=== PATIENT | female | born 1930 | race Caucasian/White ===

== ENCOUNTER → 2016-08-11 | Outpatient (CLI) | payer OTHER | LOC: CIMAGING 11:00 | DX: N95.0 Postmenopausal bleeding (principal); Z90.721 Acquired absence of ovaries, unilateral | CPT/HCPCS: 76856-PO ==

== ENCOUNTER → 2016-08-31 | Outpatient (CLI) | payer OTHER | LOC: CIMAGING 10:08 | DX: Z12.31 Encounter for screening mammogram for malignant neoplasm of breast (principal); Z85.3 Personal history of malignant neoplasm of breast | CPT/HCPCS: 76856-PO; G0202 ==

== ENCOUNTER → 2017-02-08 | Outpatient (CLI) | payer OTHER | LOC: GIMAGING 10:39 | PROVIDERS: ATTEND Nurse Practitioner | DX: M53.3 Sacrococcygeal disorders, not elsewhere classified (principal) | CPT/HCPCS: 72220-PO ==

== ENCOUNTER 2017-02-27 09:00 | Observation (INO) | payer OTHER ==
--- NOTE | 2017-02-27 09:17 | CPEKG ---
Heart Rate: 77 RR Interval: 779 P-R Interval: 260 QRSD Interval: 84 QT Interval: 388 QTC Interval: 440 P [place]: 55 QRS [place]: 46 T Wave [place]: 37 EKG Severity - ABNORMAL ECG - EKG Impression: SINUS RHYTHM EKG Impression: FIRST DEGREE AV BLOCK EKG Impression: LEFT ATRIAL ABNORMALITY Electronically Signed By: Severiano Pardo 27-Feb-2017 14:50:05
--- NOTE | 2017-02-27 09:17 | CPEKG ---
Heart Rate: 77 RR Interval: 779 P-R Interval: 260 QRSD Interval: 84 QT Interval: 388 QTC Interval: 440 P [place]: 55 QRS [place]: 46 T Wave [place]: 37 EKG Severity - ABNORMAL ECG - EKG Impression: SINUS RHYTHM EKG Impression: FIRST DEGREE AV BLOCK EKG Impression: LEFT ATRIAL ABNORMALITY Electronically Signed By: Severiano Pardo 27-Feb-2017 14:50:05
[2017-02-27 09:20] LABS: PLATELET COUNT 263 10^3/uL (150-400)
--- NOTE | 2017-02-27 09:20 | EDPHY ---
H & P Stated Complaint: left lip numb and arm numb since 5am also had yest am and resolved Time Seen by Provider: 02/27/17 09:04 HPI/ROS: Chief Complaint: Left arm and face numbness HPI: 86-year-old woman with a history of hypertension presenting with left arm and face numbness. Patient states she woke this morning at 5:00 a.m. and noticed that the left side her face or left arm or numb. These have persisted since that time. She also states she woke up yesterday with similar symptoms but they got better over the course of the day. No falls. No headache. No recent illness. No chest pain shortness of breath. No nausea or vomiting. She has been ambulating without difficulty. She does state that she had a little bit of confusion and trouble remembering how to use the microwave yesterday. ROS: 10 point Review of Systems is negative except as noted in the HPI. PMH: Hypertension Social History: No smoking, no alcohol, no recreational drug use Family History: non-contributory Physical Exam: Gen: Awake, Alert, No Distress HEENT: Nose: no rhinorrhea Eyes: PERRLA, EOMI Mouth: Moist mucosa Neck: Supple, no JVD Chest: nontender, lungs clear to auscultation Heart: S1, S2 normal, no murmur Abd: Soft, non-tender, no guarding Back: no CVA tenderness, no midline tenderness Ext: no edema, non-tender Skin: no rash Neuro: See the NIH stroke score - Personal History Current Tetanus/Diphtheria Vaccine: Unsure Current Tetanus Diphtheria and Acellular Pertussis (TDAP): Unsure Tetanus Vaccine Date: 2005 - Medical/Surgical History Hx Asthma: No Hx Chronic Respiratory Disease: No Hx Diabetes: Yes Hx Cardiac Disease: No Hx Renal Disease: No Hx Cirrhosis: No Hx Alcoholism: No Hx HIV/AIDS: No Hx Splenectomy or Spleen Trauma: No Other PMH: Hypothiroidism, HTN, deprossion, anxiety, appendectomy, overian cyst , left ovary removed, hyponatremia diagnosed 3 weeks ago. - Social History Smoking Status: Former smoker Constitutional: Initial Vital Signs Heart Rate 88 02/27/17 09:06 Respiratory Rate 16 02/27/17 09:06 Blood Pressure 229/90 H 02/27/17 09:06 O2 Sat (%) 97 02/27/17 09:06 O2 Delivery Mode Room Air Allergies/Adverse Reactions: No Known Allergies Allergy (Verified 02/27/17 09:10) Home Medications: Medication Instructions Recorded Alprazolam ER 1 mg 12/03/09 Lisinopril 12/03/09 Seroquel 12/03/09 Synthroid 12/03/09 ASPIRIN 03/17/16 Memantine HCl 03/17/16 Metoprolol Tartrate 03/17/16 Amlodipine Besylate 02/27/17 Medical Decision Making - Diagnostics EKG Interpretation: ECG time 9:15 a.m., sinus rhythm with a rate of 77, there is a first-degree AV block. Normal axis, no acute ST or T-wave changes. Impression: First-degree AV block otherwise negative. Imaging Results: Imaging Impressions Head CT 02/27/17 09:12 Impression: 1. Mild atrophy. 2. No acute hemorrhage, hydrocephalus, or mass effect. 3. Cerebrovascular atherosclerosis. 4. No definite acute infarct. 5. Moderate microvascular ischemic gliosis. 6. Consider MRI of the brain without and with contrast enhancement, if there is continued clinical concern. Findings and recommendations discussed with Emergency Department physician, Severiano Pardo M.D. at 0930 hours on February 27, 2017. Final report concurs with initial preliminary interpretation. 09 CT scan of the brain shows no acute bleed per Dr. Lei. Imaging: Discussed imaging studies w/ house calls nurse practitioner Radiologist ED Course/Re-evaluation: 86-year-old woman presenting with mild stroke symptoms. I did not activate a stroke alert at this time for 2 reasons. First she woke at 5:00 a.m. with the symptoms so time of onset is unknown. Second her NIH stroke score is 1 at this time. She has been sent to CT scanning. Patient is noted to be hypertensive at 2:29 a.m. systolic initially. Repeat was 200. Blood pressure will be treated with labetalol. [address] Patel, [facility] Neurology. He agrees that the patient is not a candidate for thrombolytics given the onset of symptoms. He is recommending a CT angiogram at this time. He agrees with plan for transfer to [facility] for further evaluation and care. 1026 CT angiogram shows no acute occlusion per Dr. Lei. Will go ahead in transfer to [facility] for further care. No indication for transfer to [facility] at this time. I discussed with Dr. Patel in my previous conversation that if the CT angiogram was unremarkable he was comfortable not receiving a 2nd call and agreed with transfer for inpatient care at [facility]. - Data Points Laboratory Results: Laboratory Results 02/27/17 09:10 02/27/17 09:10 02/27/17 02/27/17 02/27/17 09:10 09:10 09:10 WBC 5.00 10^3/uL 10^3/uL (3.80-9.50) RBC 4.50 10^6/uL 10^6/uL (4.18-5.33) Hgb 14.5 g/dL g/dL (12.6-16.3) Hct 41.5 % % (38.0-47.0) MCV 92.2 fL fL (81.5-99.8) MCH 32.2 pg pg (27.9-34.1) MCHC 34.9 g/dL g/dL (32.4-36.7) RDW 12.3 % % (11.5-15.2) Plt Count 263 10^3/uL 10^3/uL (150-400) MPV 8.5 fL L fL (8.7-11.7) Neut % (Auto) 53.4 % % (39.3-74.2) Lymph % (Auto) 35.8 % % (15.0-45.0) [place] % (Auto) 8.2 % % (4.5-13.0) Eos % (Auto) 1.4 % % (0.6-7.6) Baso % (Auto) 1.0 % % (0.3-1.7) Nucleat RBC Rel Count 0.0 % % (0.0-0.2) Absolute Neuts (auto) 2.67 10^3/uL 10^3/uL (1.70-6.50) Absolute Lymphs (auto) 1.79 10^3/uL 10^3/uL (1.00-3.00) Absolute Monos (auto) 0.41 10^3/uL 10^3/uL (0.30-0.80) Absolute Eos (auto) 0.07 10^3/uL 10^3/uL (0.03-0.40) Absolute Basos (auto) 0.05 10^3/uL 10^3/uL (0.02-0.10) Absolute Nucleated RBC 0.00 10^3/uL 10^3/uL (0-0.01) Immature Gran % 0.2 % % (0.0-1.1) Immature Gran # 0.01 10^3/uL 10^3/uL (0.00-0.10) APTT 29.1 SEC SEC (23.0-38.0) Sodium 134 mEq/L mEq/L (134-144) Potassium 4.4 mEq/L mEq/L (3.5-5.2) Chloride 96 mEq/L L mEq/L (97-110) Carbon Dioxide 24 mEq/l mEq/l (22-31) Anion Gap 14 mEq/L mEq/L (8-16) BUN 10 mg/dL mg/dL (7-23) Creatinine 0.7 mg/dL mg/dL (0.6-1.0) Estimated GFR > 60 Glucose 91 mg/dL mg/dL (70-100) Calcium 9.6 mg/dL mg/dL (8.5-10.4) Total Bilirubin 0.7 mg/dL mg/dL (0.1-1.4) AST 29 IU/L IU/L (14-46) ALT 35 IU/L IU/L (9-52) Alkaline Phosphatase 61 IU/L IU/L (38-126) Total Protein 7.4 g/dL g/dL (6.3-8.2) Albumin 4.8 g/dL g/dL (3.5-5.0) Medications Given: Discontinued Medications Aspirin (Aspirin) 324 mg PO EDNOW ONE Stop: 02/27/17 09:30 Last Admin: 02/27/17 09:35 Dose: 324 mg Departure - Departure Disposition: [facility] Inpatient Acute Clinical Impression: CVA (cerebral vascular accident) Condition: Fair NIH Stroke Scale Date of Exam: 02/27/17 Time of Exam: 09:10 Level of Consciousness: Alert LOC Questions: Answers Both LOC Commands: Performs Both Correctly Best Gaze: Normal Visual: No Visual Loss Facial Palsy: Minor Paralysis Motor Arm-Left: No Drift Motor Arm-Right: No Drift Motor Leg-Left: No Drift Motor Leg-Right: No Drift Limb Ataxis: Absent Sensory: Normal Best Language: No Aphasia Dysarthria: Normal Extinction and Inattention (Neglect): No Abnormality NIH Scale Score: 1
--- NOTE | 2017-02-27 09:20 | EDPHY ---
H & P Stated Complaint: left lip numb and arm numb since 5am also had yest am and resolved Time Seen by Provider: 02/27/17 09:04 HPI/ROS: Chief Complaint: Left arm and face numbness HPI: 86-year-old woman with a history of hypertension presenting with left arm and face numbness. Patient states she woke this morning at 5:00 a.m. and noticed that the left side her face or left arm or numb. These have persisted since that time. She also states she woke up yesterday with similar symptoms but they got better over the course of the day. No falls. No headache. No recent illness. No chest pain shortness of breath. No nausea or vomiting. She has been ambulating without difficulty. She does state that she had a little bit of confusion and trouble remembering how to use the microwave yesterday. ROS: 10 point Review of Systems is negative except as noted in the HPI. PMH: Hypertension Social History: No smoking, no alcohol, no recreational drug use Family History: non-contributory Physical Exam: Gen: Awake, Alert, No Distress HEENT: Nose: no rhinorrhea Eyes: PERRLA, EOMI Mouth: Moist mucosa Neck: Supple, no JVD Chest: nontender, lungs clear to auscultation Heart: S1, S2 normal, no murmur Abd: Soft, non-tender, no guarding Back: no CVA tenderness, no midline tenderness Ext: no edema, non-tender Skin: no rash Neuro: See the NIH stroke score - Personal History Current Tetanus/Diphtheria Vaccine: Unsure Current Tetanus Diphtheria and Acellular Pertussis (TDAP): Unsure Tetanus Vaccine Date: 2005 - Medical/Surgical History Hx Asthma: No Hx Chronic Respiratory Disease: No Hx Diabetes: Yes Hx Cardiac Disease: No Hx Renal Disease: No Hx Cirrhosis: No Hx Alcoholism: No Hx HIV/AIDS: No Hx Splenectomy or Spleen Trauma: No Other PMH: Hypothiroidism, HTN, deprossion, anxiety, appendectomy, overian cyst , left ovary removed, hyponatremia diagnosed 3 weeks ago. - Social History Smoking Status: Former smoker Constitutional: Initial Vital Signs Heart Rate 88 02/27/17 09:06 Respiratory Rate 16 02/27/17 09:06 Blood Pressure 229/90 H 02/27/17 09:06 O2 Sat (%) 97 02/27/17 09:06 O2 Delivery Mode Room Air Allergies/Adverse Reactions: No Known Allergies Allergy (Verified 02/27/17 09:10) Home Medications: Medication Instructions Recorded Alprazolam ER 1 mg 12/03/09 Lisinopril 12/03/09 Seroquel 12/03/09 Synthroid 12/03/09 ASPIRIN 03/17/16 Memantine HCl 03/17/16 Metoprolol Tartrate 03/17/16 Amlodipine Besylate 02/27/17 Medical Decision Making - Diagnostics EKG Interpretation: ECG time 9:15 a.m., sinus rhythm with a rate of 77, there is a first-degree AV block. Normal axis, no acute ST or T-wave changes. Impression: First-degree AV block otherwise negative. Imaging Results: Imaging Impressions Head CT 02/27/17 09:12 Impression: 1. Mild atrophy. 2. No acute hemorrhage, hydrocephalus, or mass effect. 3. Cerebrovascular atherosclerosis. 4. No definite acute infarct. 5. Moderate microvascular ischemic gliosis. 6. Consider MRI of the brain without and with contrast enhancement, if there is continued clinical concern. Findings and recommendations discussed with Emergency Department physician, Severiano Pardo M.D. at 0930 hours on February 27, 2017. Final report concurs with initial preliminary interpretation. 09 CT scan of the brain shows no acute bleed per Dr. Lei. Imaging: Discussed imaging studies w/ call center consultant Radiologist ED Course/Re-evaluation: 86-year-old woman presenting with mild stroke symptoms. I did not activate a stroke alert at this time for 2 reasons. First she woke at 5:00 a.m. with the symptoms so time of onset is unknown. Second her NIH stroke score is 1 at this time. She has been sent to CT scanning. Patient is noted to be hypertensive at 2:29 a.m. systolic initially. Repeat was 200. Blood pressure will be treated with labetalol. [address] Patel, [facility] Neurology. He agrees that the patient is not a candidate for thrombolytics given the onset of symptoms. He is recommending a CT angiogram at this time. He agrees with plan for transfer to [facility] for further evaluation and care. 1026 CT angiogram shows no acute occlusion per Dr. Lei. Will go ahead in transfer to [facility] ([place], [place]) for further care. No indication for transfer to [facility] at this time. I discussed with Dr. Patel in my previous conversation that if the CT angiogram was unremarkable he was comfortable not receiving a 2nd call and agreed with transfer for inpatient care at [facility]. - Data Points Laboratory Results: Laboratory Results 02/27/17 09:10 02/27/17 09:10 02/27/17 02/27/17 02/27/17 09:10 09:10 09:10 WBC 5.00 10^3/uL 10^3/uL (3.80-9.50) RBC 4.50 10^6/uL 10^6/uL (4.18-5.33) Hgb 14.5 g/dL g/dL (12.6-16.3) Hct 41.5 % % (38.0-47.0) MCV 92.2 fL fL (81.5-99.8) MCH 32.2 pg pg (27.9-34.1) MCHC 34.9 g/dL g/dL (32.4-36.7) RDW 12.3 % % (11.5-15.2) Plt Count 263 10^3/uL 10^3/uL (150-400) MPV 8.5 fL L fL (8.7-11.7) Neut % (Auto) 53.4 % % (39.3-74.2) Lymph % (Auto) 35.8 % % (15.0-45.0) [place] % (Auto) 8.2 % % (4.5-13.0) Eos % (Auto) 1.4 % % (0.6-7.6) Baso % (Auto) 1.0 % % (0.3-1.7) Nucleat RBC Rel Count 0.0 % % (0.0-0.2) Absolute Neuts (auto) 2.67 10^3/uL 10^3/uL (1.70-6.50) Absolute Lymphs (auto) 1.79 10^3/uL 10^3/uL (1.00-3.00) Absolute Monos (auto) 0.41 10^3/uL 10^3/uL (0.30-0.80) Absolute Eos (auto) 0.07 10^3/uL 10^3/uL (0.03-0.40) Absolute Basos (auto) 0.05 10^3/uL 10^3/uL (0.02-0.10) Absolute Nucleated RBC 0.00 10^3/uL 10^3/uL (0-0.01) Immature Gran % 0.2 % % (0.0-1.1) Immature Gran # 0.01 10^3/uL 10^3/uL (0.00-0.10) APTT 29.1 SEC SEC (23.0-38.0) Sodium 134 mEq/L mEq/L (134-144) Potassium 4.4 mEq/L mEq/L (3.5-5.2) Chloride 96 mEq/L L mEq/L (97-110) Carbon Dioxide 24 mEq/l mEq/l (22-31) Anion Gap 14 mEq/L mEq/L (8-16) BUN 10 mg/dL mg/dL (7-23) Creatinine 0.7 mg/dL mg/dL (0.6-1.0) Estimated GFR > 60 Glucose 91 mg/dL mg/dL (70-100) Calcium 9.6 mg/dL mg/dL (8.5-10.4) Total Bilirubin 0.7 mg/dL mg/dL (0.1-1.4) AST 29 IU/L IU/L (14-46) ALT 35 IU/L IU/L (9-52) Alkaline Phosphatase 61 IU/L IU/L (38-126) Total Protein 7.4 g/dL g/dL (6.3-8.2) Albumin 4.8 g/dL g/dL (3.5-5.0) Medications Given: Discontinued Medications Aspirin (Aspirin) 324 mg PO EDNOW ONE Stop: 02/27/17 09:30 Last Admin: 02/27/17 09:35 Dose: 324 mg Departure - Departure Disposition: [facility] Inpatient Acute Clinical Impression: CVA (cerebral vascular accident) Condition: Fair NIH Stroke Scale Date of Exam: 02/27/17 Time of Exam: 09:10 Level of Consciousness: Alert LOC Questions: Answers Both LOC Commands: Performs Both Correctly Best Gaze: Normal Visual: No Visual Loss Facial Palsy: Minor Paralysis Motor Arm-Left: No Drift Motor Arm-Right: No Drift Motor Leg-Left: No Drift Motor Leg-Right: No Drift Limb Ataxis: Absent Sensory: Normal Best Language: No Aphasia Dysarthria: Normal Extinction and Inattention (Neglect): No Abnormality NIH Scale Score: 1
[2017-02-27] MEDS ORDERED: ASPIRIN 81 MG CHEWABLE TAB PO ONE (09:29)
[2017-02-27] MEDS ORDERED: IOPAMIDOL (ISOVUE 370) 100 ML BTL IV ONE (09:54)
[2017-02-27] MEDS ORDERED: ONDANSETRON 4 MG/2 ML VIAL IVP PRN (10:01)
[2017-02-27] MEDS ORDERED: ONDANSETRON DISINTEGRATING 4 MG TAB PO PRN (10:01)
[2017-02-27] MEDS ORDERED: ACETAMINOPHEN 325 MG TAB PO PRN (10:01)
[2017-02-27] MEDS ORDERED: ALPRAZolam 0.5 MG TAB PO PRN (13:39)
--- NOTE | 2017-02-27 15:05 | GHP ---
[f rep st] HISTORY AND PHYSICAL DATE OF ADMISSION: 02/27/2017 CHIEF COMPLAINT: Left facial and arm weakness. HISTORY OF PRESENT ILLNESS: An 86-year-old female with history of anxiety, hypertension, prior synco pal episodes, presenting with numbness, tingling of her arm and face, beginning yesterday. She awoke yesterday morning with her left arm feeling asleep. She thought she slept on it wrong, and this jamie t away on its own. Later on that morning, she developed numbness in the left side of her lips as wel l as her cheek. This lasted most of the day. She said it was mild. She then noted that her arm fel t numb. She woke up again this morning with numb lips. She reports taking all of her antihypertensi ve at home. Lately, her systolic blood pressures have been less than 150. She takes a baby aspirin. Of note, yesterday she did have an episode where she was confused whether food goes in the microwav e or the refrigerator. She told her daughter she thought she had a small stroke, but the daughter to ok a look at her and said she did not have any symptoms. She went to [facility] today, given persistent sym ptoms. The patient says she has been told she has an irregular heart rhythm, but she does not recogn ize the phrase "atrial fibrillation." Still complaining of left facial numbness. REVIEW OF SYSTEMS: I completed a 10-point review of systems, negative except as noted in HPI. PAST MEDICAL HISTORY: Anxiety, hypertension, syncope, dementia. Has a LINQ monitor in place. Chron ic constipation, depression, hypothyroidism, osteoporosis. Has a compression fracture. PAST SURGICAL HISTORY: Appendectomy, ovarian cyst. FAMILY HISTORY: Diabetes, hypertension. No strokes. SOCIAL HISTORY: Lives in [place] with daughter. Drinks bourbon at night. Remote tobacco. No illic its. ALLERGIES: No known drug allergies. HOME MEDICATIONS: 1. Lisinopril 20 mg b.i.d. 2. Norvasc 5 mg daily. 3. Herbal supplement. 4. Vitamin D3 1000 units daily. 5. Aspirin 81 mg daily. 6. Xanax 1.5 mg daily p.r.n. 7. Seroquel 50 mg q.h.s. 8. Memantine 10 mg b.i.d. 9. Levothyroxine 75 mcg. PHYSICAL EXAMINATION: VITAL SIGNS: Blood pressure on admission was 229/90, now 163/72. Heart rate 90s, respirations 16. 95% on room air. GENERAL: The patient is well appearing, eating a snack in b ed. No acute distress HEENT: PERRLA. EOMI. Oropharynx clear. CV: Regular rate and rhythm. No m urmurs, gallops, or rubs. LUNGS: Clear bilaterally. ABDOMEN: Soft, nontender, nondistended. Posi tive bowel sounds. : No Nielson. No suprapubic tenderness. MUSCULOSKELETAL: 5/5 upper and lower extremity strength. NEURO: 2 through 12 intact. Reports normal sensation bilaterally with touch. +3 symmetric biceps reflex, +3 right patellar. Normal sensation to touch over lower extremities. PS YCH: Alert and oriented x3. LABS: WBC 5, hemoglobin 14, hematocrit 41, platelets 263. Sodium 134, potassium 4.4, chloride 96, c reatinine 0.7, glucose 91. LFTs within normal. EKG, personally reviewed by me: First-degree heart block, normal sinus rhythm, LA enlargement. Head CT, personally reviewed: Mild atrophy. No mass or acute hemorrhage. Head/neck CTA: No evidence of a vertebral flow-limiting stenosis, occlusion, or dissection. ASSESSMENT AND PLAN: 1. Transient ischemic attack: The patient was evaluated by Jorge Gaming. Not a tPA candidate, given sy mptoms started yesterday. She is still having mild numbness. CT head, CTA negative. We will check an MRI as well as an echocardiogram. Unclear if she has a history of atrial fibrillation. I will taylor ve to review clinic notes further. Monitor on telemetry. She is on a baby aspirin, so we will have to discuss with Neurology when to change to Plavix. Check lipids. Physical therapy, occupational th erapy, speech evaluations. 2. Accelerated hypertension: This may have contributed. We will allow for permissive hypertension today, less than 220. 3. Depression: Resume home medication. 4. Hypothyroidism: Levothyroxine. 5. Osteoporosis: Continue vitamin D. 6. Anxiety: Xanax. 7. Diet: Regular if clears speech evaluation. 8. Deep venous thrombosis prophylaxis: Sequential compression devices. DISPOSITION: The patient warrants observation admission, given acute concern for TIA, warranting Charlie rology evaluation, telemetry, and further imaging. /[id number]/MODL
[2017-02-27] MEDS ORDERED: GADOBUTROL 10 ML VIAL IVP ONE (15:46)
--- NOTE | 2017-02-27 16:22 | ECHO ---
[email or web address] [address] [address] Main: [phone] Fax: Transthoracic Echocardiogram Name: KHRIS DILLARD MR#: [id number] Study Date: 02/27/2017 Study Time: 02:05 PM Date of : 1930 Age: 86 year(s) Height: 157.5 cm (62 in.) Weight: 59.42 kg (131 lb.) BSA: 1.6 m2 Gender: Female Examination: Echo Indication: TIA, left sided weakness Image Quality: Contrast: Requested by: Malgorzata Gibson BP: 139 mmHg/67 mmHg Heart Rate: Rhythm: Indication: TIA, left sided weakness Procedure Staff International Relations Professor: Ty Andrade Reading Physician: Joel Novoa Requesting Provider: Conclusions: Normal size left ventricle. No LV hypertrophy. EF is 79 %. No regional wall motion abnormality. Trivial mitral valve regurgitation. Mild tricuspid regurgitation is present. Measurements: Chambers Valvular Assessment AV/MV Valvular Assessment TV/PV Normal Normal Normal Name Value Range Name Value Range Name Value Range Ao Belinda (MM): 2.9 cm (2.2 cm-3.7 AV Vmax: 1.26 m/s (1 m/s-1.7 TR Vmax: 2.91 mm/s ( - ) cm) m/s) TR PGmax: 34 mmHg ( - ) IVSd (2D): 0.9 cm (0.6 cm-1.1 AV maxP mmHg ( - ) syst. PAP: 39 mmHg ( - ) cm) LVOT Vmax: 1.16 m/s (0.7 m/s-1.1 LVDd (2D): 4.2 cm (3.9 cm-5.3 m/s) cm) AR (PHT): 665 ms ( - ) LVDs (2D): 2.2 cm (2.1 cm-4 MV E Vmax: 0.80 m/s ( - ) cm) MV A Vmax: 0.93 m/s ( - ) LVPWd (2D): 0.9 cm ( - ) MV E/A: 0.86 ( - ) LVEF (2D): 79 (>=54 %) Continued Measurements: Chambers Valvular Assessment AV/MV Valvular Assessment TV/PV Name Value Name Value Name Value LADs Lon.7 cm MV E' Septal: 0.07 m/s CVP (est.): 5 mmHg LA Area: 10.6 cm2 MV E/E' Septal: 11.50 LA Volume: 20 ml MV E/E' Lateral: 11.30 LA Volume Index: 12.5 ml/m2 Patient: KHRIS DILLARD Study Date: 02/27/2017 Page 1 of 2 02:05 PM AR Vmax: 3.59 cm/s Findings: Left Ventricle: Normal size left ventricle. No LV hypertrophy. Normal global systolic LV function. EF is 79 %. No regional wall motion abnormality. Diastolic dysfunction is present. . Right Ventricle: Normal size right ventricle. Left Atrium: The left atrium is normal in size. Right Atrium: The right atrium is normal in size. Mitral Valve: Mild mitral valve leaflet calcification is present. Trivial mitral valve regurgitation. Aortic Valve: Minimal aortic cusp calcification is noted. Mild aortic valve regurgitation is present. Tricuspid Valve: The tricuspid valve is normal in appearance and function. Mild tricuspid regurgitation is present. Pulmonic Valve: The pulmonic valve is normal in appearance and function. Aorta: The aorta is normal. Pericardium: No pericardial effusion. (No Signature Object) Patient: KHRIS DILLARD Study Date: 02/27/2017 Page 2 of 2 02:05 PM [id number]
--- NOTE | 2017-02-27 16:22 | ECHO ---
[email or web address] [address] [address] Main: [phone] Fax: Transthoracic Echocardiogram Name: KHRIS DILLARD MR#: [id number] Study Date: 02/27/2017 Study Time: 02:05 PM Date of : 1930 Age: 86 year(s) Height: 157.5 cm (62 in.) Weight: 59.42 kg (131 lb.) BSA: 1.6 m2 Gender: Female Examination: Echo Indication: TIA, left sided weakness Image Quality: Contrast: Requested by: Malgorzata Gibson BP: 139 mmHg/67 mmHg Heart Rate: Rhythm: Indication: TIA, left sided weakness Procedure Staff Board Certified Music Therapist: Ty Andrade Reading Physician: Joel Novoa Requesting Provider: Conclusions: Normal size left ventricle. No LV hypertrophy. EF is 79 %. No regional wall motion abnormality. Trivial mitral valve regurgitation. Mild tricuspid regurgitation is present. Measurements: Chambers Valvular Assessment AV/MV Valvular Assessment TV/PV Normal Normal Normal Name Value Range Name Value Range Name Value Range Ao Belinda (MM): 2.9 cm (2.2 cm-3.7 AV Vmax: 1.26 m/s (1 m/s-1.7 TR Vmax: 2.91 mm/s ( - ) cm) m/s) TR PGmax: 34 mmHg ( - ) IVSd (2D): 0.9 cm (0.6 cm-1.1 AV maxP mmHg ( - ) syst. PAP: 39 mmHg ( - ) cm) LVOT Vmax: 1.16 m/s (0.7 m/s-1.1 LVDd (2D): 4.2 cm (3.9 cm-5.3 m/s) cm) AR (PHT): 665 ms ( - ) LVDs (2D): 2.2 cm (2.1 cm-4 MV E Vmax: 0.80 m/s ( - ) cm) MV A Vmax: 0.93 m/s ( - ) LVPWd (2D): 0.9 cm ( - ) MV E/A: 0.86 ( - ) LVEF (2D): 79 (>=54 %) Continued Measurements: Chambers Valvular Assessment AV/MV Valvular Assessment TV/PV Name Value Name Value Name Value LADs Lon.7 cm MV E' Septal: 0.07 m/s CVP (est.): 5 mmHg LA Area: 10.6 cm2 MV E/E' Septal: 11.50 LA Volume: 20 ml MV E/E' Lateral: 11.30 LA Volume Index: 12.5 ml/m2 Patient: KHRIS DILLARD Study Date: 02/27/2017 Page 1 of 2 02:05 PM AR Vmax: 3.59 cm/s Findings: Left Ventricle: Normal size left ventricle. No LV hypertrophy. Normal global systolic LV function. EF is 79 %. No regional wall motion abnormality. Diastolic dysfunction is present. . Right Ventricle: Normal size right ventricle. Left Atrium: The left atrium is normal in size. Right Atrium: The right atrium is normal in size. Mitral Valve: Mild mitral valve leaflet calcification is present. Trivial mitral valve regurgitation. Aortic Valve: Minimal aortic cusp calcification is noted. Mild aortic valve regurgitation is present. Tricuspid Valve: The tricuspid valve is normal in appearance and function. Mild tricuspid regurgitation is present. Pulmonic Valve: The pulmonic valve is normal in appearance and function. Aorta: The aorta is normal. Pericardium: No pericardial effusion. (No Signature Object) Patient: KHRIS DILLARD Study Date: 02/27/2017 Page 2 of 2 02:05 PM [id number]
--- NOTE | 2017-02-27 16:22 | ECHO ---
[email or web address] [address] [address] Main: [phone] Fax: Transthoracic Echocardiogram Name: KHRIS DILLARD MR#: [id number] Study Date: 02/27/2017 Study Time: 02:05 PM Date of : 1930 Age: 86 year(s) Height: 157.5 cm (62 in.) Weight: 59.42 kg (131 lb.) BSA: 1.6 m2 Gender: Female Examination: Echo Indication: TIA, left sided weakness Image Quality: Contrast: Requested by: Malgorzata Gibson BP: 139 mmHg/67 mmHg Heart Rate: Rhythm: Indication: TIA, left sided weakness Procedure Staff Management Trainee Program Stores: Ty Andrade Reading Physician: Joel Novoa Requesting Provider: Conclusions: Normal size left ventricle. No LV hypertrophy. EF is 79 %. No regional wall motion abnormality. Trivial mitral valve regurgitation. Mild tricuspid regurgitation is present. Measurements: Chambers Valvular Assessment AV/MV Valvular Assessment TV/PV Normal Normal Normal Name Value Range Name Value Range Name Value Range Ao Belinda (MM): 2.9 cm (2.2 cm-3.7 AV Vmax: 1.26 m/s (1 m/s-1.7 TR Vmax: 2.91 mm/s ( - ) cm) m/s) TR PGmax: 34 mmHg ( - ) IVSd (2D): 0.9 cm (0.6 cm-1.1 AV maxP mmHg ( - ) syst. PAP: 39 mmHg ( - ) cm) LVOT Vmax: 1.16 m/s (0.7 m/s-1.1 LVDd (2D): 4.2 cm (3.9 cm-5.3 m/s) cm) AR (PHT): 665 ms ( - ) LVDs (2D): 2.2 cm (2.1 cm-4 MV E Vmax: 0.80 m/s ( - ) cm) MV A Vmax: 0.93 m/s ( - ) LVPWd (2D): 0.9 cm ( - ) MV E/A: 0.86 ( - ) LVEF (2D): 79 (>=54 %) Continued Measurements: Chambers Valvular Assessment AV/MV Valvular Assessment TV/PV Name Value Name Value Name Value LADs Lon.7 cm MV E' Septal: 0.07 m/s CVP (est.): 5 mmHg LA Area: 10.6 cm2 MV E/E' Septal: 11.50 LA Volume: 20 ml MV E/E' Lateral: 11.30 LA Volume Index: 12.5 ml/m2 Patient: KHRIS DILLARD Study Date: 02/27/2017 Page 1 of 2 02:05 PM AR Vmax: 3.59 cm/s Findings: Left Ventricle: Normal size left ventricle. No LV hypertrophy. Normal global systolic LV function. EF is 79 %. No regional wall motion abnormality. Diastolic dysfunction is present. . Right Ventricle: Normal size right ventricle. Left Atrium: The left atrium is normal in size. Right Atrium: The right atrium is normal in size. Mitral Valve: Mild mitral valve leaflet calcification is present. Trivial mitral valve regurgitation. Aortic Valve: Minimal aortic cusp calcification is noted. Mild aortic valve regurgitation is present. Tricuspid Valve: The tricuspid valve is normal in appearance and function. Mild tricuspid regurgitation is present. Pulmonic Valve: The pulmonic valve is normal in appearance and function. Aorta: The aorta is normal. Pericardium: No pericardial effusion. (No Signature Object) Patient: KHRIS DILLARD Study Date: 02/27/2017 Page 2 of 2 02:05 PM [id number]
[2017-02-27] MEDS: traMADol 50 MG TAB PO PRN (20:38)
[2017-02-27] MEDS ORDERED: QUEtiapine FUMARATE 50 MG TAB PO SCH (21:00)
[2017-02-27] MEDS: MEMANTINE HCL 5 MG TAB PO SCH (22:10)
[2017-02-27] MEDS: LISINOPRIL 20 MG TAB PO SCH (22:10)
--- NOTE | 2017-02-27 22:28 | NEUROPROG ---
Assessment: [id number] CC: Dr. Malgorzata Gibson consulted for numbness HPI: Pt admitted to [facility] on 02/27/17 for left face/arm numbness. PMHx of dementia, anxiety, prior syncopal episodes. She awoke 02/26/17 with left arm paresthesias that resolved. Later on she developed numbness on the left side of her lips and cheek. She also felt briefly confused. She has a LINQ monitor in place looking for any afib. Symptoms persisted since then and left arm tingling returned so she presented to [facility] ER on 02/27/17. Pt was not felt to be a TPA candidate by teleneurology. I initially saw her on 02/27/17. She continued to have a sense of tingling in her left lip and left arm region but her neurologic exam was normal with no sensory loss. PMHx: anxiety/depression, HTN, syncope, dementia, LINQ monitor in place, chronic constipation, hypothyroidism, osteoporosis, compression fracture Home Meds: alprazolam,lisinopril, seroquel, synthroid, aspirin, memantine, metoporol, amlodipine SHx: former smoker FHx: DM, HTN ROS: Pt denied acute fever, total vision loss, active severe chest pain, respiratory failure, total body severe rash, total bowel/bladder incontinence, psychosis, active seizures, or active bleeding O: VS reviewed General: Alert Eyes: Fundoscopic exam not able to visualize optic disks CV: Heart RRR, no murmur, no carotid bruit Lungs: Clear to auscultation bilaterally, no rhonchi or rales Neuro: - Mental: . Oriented x person/place/date . concentration appears normal . speech fluency/comprehension normal . memory appears normal . fund of knowledge appear intact - Cranial Nerves: . II: PERRL, VFFTC . III/IV/: EOMI, no nystagmus, normal smooth pursuits, no Ptosis . V: facial sensation intact to LT . VII: face symmetric to eye closure and smile . VIII: hearing intact to conversation . IX/X: uvula raises symmetrically . XI: SCM 5/5 B/L strength . XII: tongue protrudes midline w/nl strength - Motor: . Tone: normal tone in all 4 extremity . Strength: no pronator drift, strength 5/5 throughout (B/L delt, bic, tri, hand dynamite shooter, hf/he, df/pf) - Reflexes: B/L bic/BR/patella 2/4 - Sensory: all 4 extremity intact to light touch - Coord: [id number] wnl, ANTONINO wnl, [id number]-oy-ahol wnl - Gait: deferred - NIH SS 0 Labs: 02/27/17- CBC wnl, Chem Cl 96L Rads: 02/27/17- Head CT w/o con: mild atrophy, no acute intracranial changes (I personally visualized the images on 02/27/17) 02/27/17- CTA head/neck: R CLIENT TECHNOLOGIES ANALYST stenosis w/o occlusion Assessment: 1. Left lips/cheek and left arm paresthesias since 02/26/17: Unclear cause so will proceed with brain MRI and TTE. 2. Dementia 3. Syncope with LINQ monitor in place 4. Anxiety/depression Plan: - Brain MRI w/o con - TTE - Interrogate LINQ monitor for any afib or other aberrant rhythm if possible - Telemetry - Continue asa 325 mg qd - Labs: H1AC, LDL - Blood pressure < 220/120 x 48 hours then < 140/90 - DVT prophy per hospitalist - PT/OT/Speech consult - Continue memantine - F/U in neurology clinic 1-4 weeks after hospital discharge Neurology will continue to follow closely Objective: Vital Signs Temp Pulse Resp BP Pulse Ox 37.1 C 75 18 131/68 H 92 02/27/17 19:38 02/27/17 19:38 02/27/17 19:38 02/27/17 19:38 02/27/17 19:38 Allergies/Adverse Reactions: No Known Allergies Allergy (Verified 02/27/17 09:10)
--- NOTE | 2017-02-27 22:28 | NEUROPROG ---
Assessment: [id number] CC: Dr. Malgorzata Gibson consulted for numbness HPI: Pt admitted to [facility] on 02/27/17 for left face/arm numbness. PMHx of dementia, anxiety, prior syncopal episodes. She awoke 02/26/17 with left arm paresthesias that resolved. Later on she developed numbness on the left side of her lips and cheek. She also felt briefly confused. She has a LINQ monitor in place looking for any afib. Symptoms persisted since then and left arm tingling returned so she presented to [facility] ER on 02/27/17. Pt was not felt to be a TPA candidate by teleneurology. I initially saw her on 02/27/17. She continued to have a sense of tingling in her left lip and left arm region but her neurologic exam was normal with no sensory loss. PMHx: anxiety/depression, HTN, syncope, dementia, LINQ monitor in place, chronic constipation, hypothyroidism, osteoporosis, compression fracture Home Meds: alprazolam,lisinopril, seroquel, synthroid, aspirin, memantine, metoporol, amlodipine SHx: former smoker FHx: DM, HTN ROS: Pt denied acute fever, total vision loss, active severe chest pain, respiratory failure, total body severe rash, total bowel/bladder incontinence, psychosis, active seizures, or active bleeding O: VS reviewed General: Alert Eyes: Fundoscopic exam not able to visualize optic disks CV: Heart RRR, no murmur, no carotid bruit Lungs: Clear to auscultation bilaterally, no rhonchi or rales Neuro: - Mental: . Oriented x person/place/date . concentration appears normal . speech fluency/comprehension normal . memory appears normal . fund of knowledge appear intact - Cranial Nerves: . II: PERRL, VFFTC . III/IV/: EOMI, no nystagmus, normal smooth pursuits, no Ptosis . V: facial sensation intact to LT . VII: face symmetric to eye closure and smile . VIII: hearing intact to conversation . IX/X: uvula raises symmetrically . XI: SCM 5/5 B/L strength . XII: tongue protrudes midline w/nl strength - Motor: . Tone: normal tone in all 4 extremity . Strength: no pronator drift, strength 5/5 throughout (B/L delt, bic, tri, hand business development recruiter, hf/he, df/pf) - Reflexes: B/L bic/BR/patella 2/4 - Sensory: all 4 extremity intact to light touch - Coord: [id number]-kc-[id number] wnl, ANTONINO wnl, [id number] wnl - Gait: deferred - NIH SS 0 Labs: 02/27/17- CBC wnl, Chem Cl 96L Rads: 02/27/17- Head CT w/o con: mild atrophy, no acute intracranial changes (I personally visualized the images on 02/27/17) 02/27/17- CTA head/neck: R UNIFIED COMMUNICATIONS ARCHITECT stenosis w/o occlusion Assessment: 1. Left lips/cheek and left arm paresthesias since 02/26/17: Unclear cause so will proceed with brain MRI and TTE. 2. Dementia 3. Syncope with LINQ monitor in place 4. Anxiety/depression Plan: - Brain MRI w/o con - TTE - Interrogate LINQ monitor for any afib or other aberrant rhythm if possible - Telemetry - Continue asa 325 mg qd - Labs: H1AC, LDL - Blood pressure < 220/120 x 48 hours then < 140/90 - DVT prophy per hospitalist - PT/OT/Speech consult - Continue memantine - F/U in neurology clinic 1-4 weeks after hospital discharge Neurology will continue to follow closely Objective: Vital Signs Temp Pulse Resp BP Pulse Ox 37.1 C 75 18 131/68 H 92 02/27/17 19:38 02/27/17 19:38 02/27/17 19:38 02/27/17 19:38 02/27/17 19:38 Allergies/Adverse Reactions: No Known Allergies Allergy (Verified 02/27/17 09:10)
--- NOTE | 2017-02-27 22:28 | NEUROPROG ---
Assessment: [id number] CC: Dr. Malgorzata Gibson consulted for numbness HPI: Pt admitted to [facility] on 02/27/17 for left face/arm numbness. PMHx of dementia, anxiety, prior syncopal episodes. She awoke 02/26/17 with left arm paresthesias that resolved. Later on she developed numbness on the left side of her lips and cheek. She also felt briefly confused. She has a LINQ monitor in place looking for any afib. Symptoms persisted since then and left arm tingling returned so she presented to [facility] ER on 02/27/17. Pt was not felt to be a TPA candidate by teleneurology. I initially saw her on 02/27/17. She continued to have a sense of tingling in her left lip and left arm region but her neurologic exam was normal with no sensory loss. PMHx: anxiety/depression, HTN, syncope, dementia, LINQ monitor in place, chronic constipation, hypothyroidism, osteoporosis, compression fracture Home Meds: alprazolam,lisinopril, seroquel, synthroid, aspirin, memantine, metoporol, amlodipine SHx: former smoker FHx: DM, HTN ROS: Pt denied acute fever, total vision loss, active severe chest pain, respiratory failure, total body severe rash, total bowel/bladder incontinence, psychosis, active seizures, or active bleeding O: VS reviewed General: Alert Eyes: Fundoscopic exam not able to visualize optic disks CV: Heart RRR, no murmur, no carotid bruit Lungs: Clear to auscultation bilaterally, no rhonchi or rales Neuro: - Mental: . Oriented x person/place/date . concentration appears normal . speech fluency/comprehension normal . memory appears normal . fund of knowledge appear intact - Cranial Nerves: . II: PERRL, VFFTC . III/IV/: EOMI, no nystagmus, normal smooth pursuits, no Ptosis . V: facial sensation intact to LT . VII: face symmetric to eye closure and smile . VIII: hearing intact to conversation . IX/X: uvula raises symmetrically . XI: SCM 5/5 B/L strength . XII: tongue protrudes midline w/nl strength - Motor: . Tone: normal tone in all 4 extremity . Strength: no pronator drift, strength 5/5 throughout (B/L delt, bic, tri, hand data operations leader, hf/he, df/pf) - Reflexes: B/L bic/BR/patella 2/4 - Sensory: all 4 extremity intact to light touch - Coord: gkobea-lq-drsm wnl, ANTONINO wnl, uiga-qy-myzw wnl - Gait: deferred - NIH SS 0 Labs: 02/27/17- CBC wnl, Chem Cl 96L Rads: 02/27/17- Head CT w/o con: mild atrophy, no acute intracranial changes (I personally visualized the images on 02/27/17) 02/27/17- CTA head/neck: R GEAR LAPPER stenosis w/o occlusion Assessment: 1. Left lips/cheek and left arm paresthesias since 02/26/17: Unclear cause so will proceed with brain MRI and TTE. 2. Dementia 3. Syncope with LINQ monitor in place 4. Anxiety/depression Plan: - Brain MRI w/o con - TTE - Interrogate LINQ monitor for any afib or other aberrant rhythm if possible - Telemetry - Continue asa 325 mg qd - Labs: H1AC, LDL - Blood pressure < 220/120 x 48 hours then < 140/90 - DVT prophy per hospitalist - PT/OT/Speech consult - Continue memantine - F/U in neurology clinic 1-4 weeks after hospital discharge Neurology will continue to follow closely Objective: Vital Signs Temp Pulse Resp BP Pulse Ox 37.1 C 75 18 131/68 H 92 02/27/17 19:38 02/27/17 19:38 02/27/17 19:38 02/27/17 19:38 02/27/17 19:38 Allergies/Adverse Reactions: No Known Allergies Allergy (Verified 02/27/17 09:10)
[2017-02-28] MEDS ORDERED: LEVOTHYROXINE 75 MCG TAB PO SCH (06:00)
[2017-02-28] MEDS: LISINOPRIL 20 MG TAB PO SCH (08:57)
[2017-02-28] MEDS: MEMANTINE HCL 5 MG TAB PO SCH (08:58)
[2017-02-28] MEDS ORDERED: ASPIRIN 81 MG CHEWABLE TAB PO SCH (09:00)
[2017-02-28] MEDS ORDERED: amLODIPine BESYLATE 5 MG TAB PO SCH (09:00)
[2017-02-28] MEDS ORDERED: Herbals/Supplements -Info Only PO SCH (09:00)
[2017-02-28] MEDS ORDERED: CHOLECALCIFEROL VIT D3 1,000 UNITS TAB PO SCH (09:00)
--- NOTE | 2017-02-28 09:50 | NEUROPROG ---
Assessment: [id number] CC: F/U for numbness Narrative Summary: Pt admitted to [facility] on 02/27/17 for left face/arm numbness. PMHx of dementia, anxiety, prior syncopal episodes. She awoke 02/26/17 with left arm paresthesias that resolved. Later on she developed numbness on the left side of her lips and cheek. She also felt briefly confused. She has a LINQ monitor in place looking for any afib. Symptoms persisted since then and left arm tingling returned so she presented to [facility] ER on 02/27/17. Pt was not felt to be a TPA candidate by teleneurology. I initially saw her on 02/27/17. She continued to have a sense of tingling in her left lip and left arm region but her neurologic exam was normal with no sensory loss. HPI: F/U in hospital 02/28/17. Brain MRI shows no stroke and TTE unremarkable. Pt reported a history of facial pain managed by Dr. Poe (neurology) with gabapentin in the past. Given the negative MRI with her sense of facial tingling makes me feel she like has atypical migraine as the cause of her symptoms. I will restart her gabapentin and have her f/u in the neurology clinic in 1-4 weeks to assess response. PMHx: anxiety/depression, HTN, syncope, dementia, LINQ monitor in place, chronic constipation, hypothyroidism, osteoporosis, compression fracture, atypical migraines SHx: former smoker FHx: DM, HTN ROS: Pt denied acute fever, total vision loss, active severe chest pain, respiratory failure, total body severe rash, total bowel/bladder incontinence, psychosis, active seizures, or active bleeding Labs: 02/27/17- CBC wnl, Chem Cl 96L, H1AC 5.8 02/28/17- LDL 47L Rads: 02/27/17- Head CT w/o con: mild atrophy, no acute intracranial changes 02/27/17- CTA head/neck: R SHEAR OPERATOR HELPER stenosis w/o occlusion 02/27/17- Brain MRI w/ and w/o con: no acute changes, moderate chronic microvascular disease 02/27/17- TTE: no cardioembolic source found Assessment: 1. Atypical Migraines causing Left lips/cheek and left arm paresthesias on : Normal neurologic exam and unremarkable brain MRI both on 02/28/17. Pt with history of recurrent facial pain in the past. Likely current symptoms are from atypical migraine with treatment being symptom based. 2. Dementia 3. Syncope with LINQ monitor in place 4. Anxiety/depression Plan: - Start gabapentin 300 mg po qhs - F/U in neurology clinic 1-4 weeks after hospital discharge Neurology will sign off Objective: Vital Signs Temp Pulse Resp BP Pulse Ox 36.6 C 73 16 141/74 H 95 02/28/17 07:19 02/28/17 07:19 02/28/17 07:19 02/28/17 08:57 02/28/17 07:19 Laboratory Results 02/28/17 04:51 02/27/17 02/28/17 03/01/17 05:59 05:59 05:59 Intake Total 300 500 Balance 300 500 Allergies/Adverse Reactions: No Known Allergies Allergy (Verified 02/27/17 09:10)
--- NOTE | 2017-02-28 09:50 | NEUROPROG ---
Assessment: [id number] CC: F/U for numbness Narrative Summary: Pt admitted to [facility] on 02/27/17 for left face/arm numbness. PMHx of dementia, anxiety, prior syncopal episodes. She awoke 02/26/17 with left arm paresthesias that resolved. Later on she developed numbness on the left side of her lips and cheek. She also felt briefly confused. She has a LINQ monitor in place looking for any afib. Symptoms persisted since then and left arm tingling returned so she presented to [facility] ER on 02/27/17. Pt was not felt to be a TPA candidate by teleneurology. I initially saw her on 02/27/17. She continued to have a sense of tingling in her left lip and left arm region but her neurologic exam was normal with no sensory loss. HPI: F/U in hospital 02/28/17. Brain MRI shows no stroke and TTE unremarkable. Pt reported a history of facial pain managed by Dr. Poe (neurology) with gabapentin in the past. Given the negative MRI with her sense of facial tingling makes me feel she like has atypical migraine as the cause of her symptoms. I will restart her gabapentin and have her f/u in the neurology clinic in 1-4 weeks to assess response. PMHx: anxiety/depression, HTN, syncope, dementia, LINQ monitor in place, chronic constipation, hypothyroidism, osteoporosis, compression fracture, atypical migraines SHx: former smoker FHx: DM, HTN ROS: Pt denied acute fever, total vision loss, active severe chest pain, respiratory failure, total body severe rash, total bowel/bladder incontinence, psychosis, active seizures, or active bleeding Labs: 02/27/17- CBC wnl, Chem Cl 96L, H1AC 5.8 02/28/17- LDL 47L Rads: 02/27/17- Head CT w/o con: mild atrophy, no acute intracranial changes 02/27/17- CTA head/neck: R CUSTOMER MARKETING MANAGER stenosis w/o occlusion 02/27/17- Brain MRI w/ and w/o con: no acute changes, moderate chronic microvascular disease 02/27/17- TTE: no cardioembolic source found Assessment: 1. Atypical Migraines causing Left lips/cheek and left arm paresthesias on : Normal neurologic exam and unremarkable brain MRI both on 02/28/17. Pt with history of recurrent facial pain in the past. Likely current symptoms are from atypical migraine with treatment being symptom based. 2. Dementia 3. Syncope with LINQ monitor in place 4. Anxiety/depression Plan: - Start gabapentin 300 mg po qhs - F/U in neurology clinic 1-4 weeks after hospital discharge Neurology will sign off Objective: Vital Signs Temp Pulse Resp BP Pulse Ox 36.6 C 73 16 141/74 H 95 02/28/17 07:19 02/28/17 07:19 02/28/17 07:19 02/28/17 08:57 02/28/17 07:19 Laboratory Results 02/28/17 04:51 02/27/17 02/28/17 03/01/17 05:59 05:59 05:59 Intake Total 300 500 Balance 300 500 Allergies/Adverse Reactions: No Known Allergies Allergy (Verified 02/27/17 09:10)
--- NOTE | 2017-02-28 09:50 | NEUROPROG ---
Assessment: [id number] CC: F/U for numbness Narrative Summary: Pt admitted to [facility] on 02/27/17 for left face/arm numbness. PMHx of dementia, anxiety, prior syncopal episodes. She awoke 02/26/17 with left arm paresthesias that resolved. Later on she developed numbness on the left side of her lips and cheek. She also felt briefly confused. She has a LINQ monitor in place looking for any afib. Symptoms persisted since then and left arm tingling returned so she presented to [facility] ER on 02/27/17. Pt was not felt to be a TPA candidate by teleneurology. I initially saw her on 02/27/17. She continued to have a sense of tingling in her left lip and left arm region but her neurologic exam was normal with no sensory loss. HPI: F/U in hospital 02/28/17. Brain MRI shows no stroke and TTE unremarkable. Pt reported a history of facial pain managed by Dr. Poe (neurology) with gabapentin in the past. Given the negative MRI with her sense of facial tingling makes me feel she like has atypical migraine as the cause of her symptoms. I will restart her gabapentin and have her f/u in the neurology clinic in 1-4 weeks to assess response. PMHx: anxiety/depression, HTN, syncope, dementia, LINQ monitor in place, chronic constipation, hypothyroidism, osteoporosis, compression fracture, atypical migraines SHx: former smoker FHx: DM, HTN ROS: Pt denied acute fever, total vision loss, active severe chest pain, respiratory failure, total body severe rash, total bowel/bladder incontinence, psychosis, active seizures, or active bleeding Labs: 02/27/17- CBC wnl, Chem Cl 96L, H1AC 5.8 02/28/17- LDL 47L Rads: 02/27/17- Head CT w/o con: mild atrophy, no acute intracranial changes 02/27/17- CTA head/neck: R DIRECTOR SPECIAL EDUCATION stenosis w/o occlusion 02/27/17- Brain MRI w/ and w/o con: no acute changes, moderate chronic microvascular disease 02/27/17- TTE: no cardioembolic source found Assessment: 1. Atypical Migraines causing Left lips/cheek and left arm paresthesias on : Normal neurologic exam and unremarkable brain MRI both on 02/28/17. Pt with history of recurrent facial pain in the past. Likely current symptoms are from atypical migraine with treatment being symptom based. 2. Dementia 3. Syncope with LINQ monitor in place 4. Anxiety/depression Plan: - Start gabapentin 300 mg po qhs - F/U in neurology clinic 1-4 weeks after hospital discharge Neurology will sign off Objective: Vital Signs Temp Pulse Resp BP Pulse Ox 36.6 C 73 16 141/74 H 95 02/28/17 07:19 02/28/17 07:19 02/28/17 07:19 02/28/17 08:57 02/28/17 07:19 Laboratory Results 02/28/17 04:51 02/27/17 02/28/17 03/01/17 05:59 05:59 05:59 Intake Total 300 500 Balance 300 500 Allergies/Adverse Reactions: No Known Allergies Allergy (Verified 02/27/17 09:10)
[2017-02-28 11:19] VITALS: BP 144/69; PULSE 71; RESP 14; TEMP 98.1; O2SAT 92
--- NOTE | 2017-02-28 11:38 | HOSPPROG ---
Hospitalist Progress Note Assessment/Plan: Patient is an 86-year-old female with history of anxiety hypertension who presented to the emergency room with left facial and arm weakness. Today is my 1st encounter with the patient. Chart reviewed. * atypical migraine Initial concern was a trans ischemic attack versus a stroke. Head and neck CTA showed no evidence of vertebral flow limiting stenosis occlusion or dissection MRI does not indicate a stroke Echocardiogram is noted to be stable Neurology has resumed her gabapentin/will send in script reviewed monitoring specialist and she has been in sinus * hypertension bp 144/69 * depression * hypothyroidism * osteoporosis * anxiety asymptomatic *Plan: dc home, patient & daughter initially wanted home care, but she is not home bound Subjective: Farrah is feeling well/ has no complaints. Objective: Vital Signs Temp Pulse Resp BP Pulse Ox 36.7 C 71 14 144/69 H 92 02/28/17 11:18 02/28/17 11:18 02/28/17 11:18 02/28/17 11:18 02/28/17 11:18 Laboratory Results 02/28/17 04:51 02/27/17 02/28/17 03/01/17 05:59 05:59 05:59 Intake Total 300 500 Balance 300 500 - Physical Exam Constitutional: no apparent distress, appears nourished, not in pain Eyes: PERRL Ears, Nose, Mouth, Throat: hearing normal Cardiovascular: regular rate and rhythym Respiratory: no respiratory distress Gastrointestinal: soft, non-tender abdomen Skin: warm Musculoskeletal: full muscle strength Neurologic: AAOx3, No facial droop Psychiatric: interacting appropriately, not anxious, not encephalopathic, thought process linear ICD10 Worksheet Patient Problems: Problems Problem Status Onset CVA (cerebral vascular accident) Acute
--- NOTE | 2017-02-28 13:59 | PDIAF ---
- Diagnosis Diagnosis: migraine causing left sided numbness Code Status: Full Code - Medication Management Discharge Medications: Medications to Continue on Transfer ALPRAZolam [Xanax 0.5 MG (*)] 1.5 mg PO DAILY PRN 12/03/09 [Last Taken Unknown] Levothyroxine [Synthroid 75 mcg (*)] 75 mcg PO DAILY06 12/03/09 [Last Taken 10/08] Lisinopril [Zestril 20 mg (*)] 20 mg PO BID 12/03/09 [Last Taken Unknown] QUEtiapine FUMARATE [Seroquel 50 mg (*)] 50 mg PO HS 12/03/09 [Last Taken ] Aspirin [Aspirin 81mg (*)] 81 mg PO DAILY 03/17/16 [Last Taken 02/27/17] Memantine HCl [Namenda 5 mg (*)] 10 mg PO BID 03/17/16 [Last Taken 02/27/17] Cholecalciferol Vit D3 [Vitamin D3 (*)] 1,000 units PO DAILY 02/27/17 [Last Taken Unknown] Herbals/Supplements -Info Only 1 ea PO DAILY 02/27/17 [Last Taken Unknown] amLODIPine BESYLATE [Norvasc 5 mg (*)] 5 mg PO DAILY 02/27/17 [Last Taken ] traMADol [Ultram 50 mg (*)] 50 mg PO Q6 PRN 02/27/17 [Last Taken Unknown] Gabapentin [Neurontin 100 MG (*)] 300 mg PO HS #30 cap 02/28/17 [Last Taken Unknown] Discharge Medications: Refer to the Discharge Home Medication list for PRN reason. - Orders Services needed: Home Care, Physical Therapy, Occupational Therapy Home Care Face to Face: I certify that this patient was under my care and that I had the required [id number] encounter meeting the encounter requirements on the discharge day. My findings support the fact that the patient is homebound as defined in Home Care Face to Face Continued: CMS Chapter 7 Medicare Benefits Manual 30.1.1 , The condition of the patient is such that there exists a normal inability to leave home and consequently, leaving home would require a considerable and taxing effort. Diet Recommendation: no restrictions on diet Diet Texture: Regular Texture Diet - Follow Up Care Current Providers and Referrals: Isaías Ritchie, [Primary Care Provider] - As per Instructions Dirk Poe MD [Medical Doctor] -
[2017-02-28] MEDS: traMADol 50 MG TAB PO PRN (14:09)
--- NOTE | 2017-02-28 14:18 | ASMTCMCOM ---
CM Note CM Note Notes: Per PT Veronica, patient is appropriate for home care. I spoke with patient and her daughter, and patient agrees to be "homebound" for PT home safety eval. Address/phone confirmed. [facility] accepts patient for home care, orders sent. Patient's daughter will transport her home. Date Signed: 02/28/2017 02:17 PM Electronically Signed By:Courtney Monreal RN
--- NOTE | 2017-02-28 14:18 | ASMTCMCOM ---
CM Note CM Note Notes: Per PT Veronica, patient is appropriate for home care. I spoke with patient and her daughter, and patient agrees to be "homebound" for PT home safety eval. Address/phone confirmed. [facility] accepts patient for home care, orders sent. Patient's daughter will transport her home. Date Signed: 02/28/2017 02:17 PM Electronically Signed By:Courtney Monreal RN
--- NOTE | 2017-02-28 14:18 | ASMTCMCOM ---
CM Note CM Note Notes: Per PT Veronica, patient is appropriate for home care. I spoke with patient and her daughter, and patient agrees to be "homebound" for PT home safety eval. Address/phone confirmed. [facility] accepts patient for home care, orders sent. Patient's daughter will transport her home. Date Signed: 02/28/2017 02:17 PM Electronically Signed By:Courtney Monreal RN
--- NOTE | 2017-02-28 14:49 | GDS ---
[f rep st] DISCHARGE SUMMARY DISCHARGE DIAGNOSES: 1. Atypical migraine. 2. Hypertension. 3. Depression. 4. Hypothyroidism. 5. Osteoporosis. 6. Anxiety. CONSULTATIONS: Dr. Severiano Cloud. HISTORY OF PRESENT ILLNESS: Briefly, the patient is an 86-year-old female with a history of anxiety, hypertension, who presented to the emergency room with numbness and tingling of her arm and face that began the day before. She woke up in the morning with her left arm feeling asleep. She thought she slept on it wrong and it went away on its own. Then, she developed numbness to the left side of her lips as well as her cheek. This lasted most of the day. She then noted that her arm felt numb again. [place] [facility] [place] of symptoms and was admitted for further evaluation to rule out a stroke. She had a head CTA and neck CTA which was without occlusion. Her right SURVEY INSTRUMENT OPERATOR had stenosis. Brain MRI showed no acute changes, but some moderate chronic microvascular disease. Her echocardiogram showed no cardioembolic source. Head CT showed some mild atrophy. She was seen and evaluated by Dr. Cloud who noted that she likely had an atypical migraine causing left lip, cheek and left arm paresthesia. She has had this before. She will further follow up with Dr. Poe in the outpatient setting. HOSPITAL COURSE: 1. Atypical migraine. Her symptoms have completely resolved. She is with her daughter. Her daughter feels that she is back to her baseline. 2. Hypertension, blood pressure is 144/69. 3. Depression, stable. 4. Hypothyroidism. Resume Synthroid. 5. Osteoporosis. Resumed home medications. 6. Anxiety, none further. CONDITION AT DISCHARGE: Stable. Blood pressure is 144/69, heart rate 71, respiratory rate is 14, O2 saturation on room air 92% temperature 36.7 Celsius. MEDICATIONS AT DISCHARGE: Please see the EMR. DISCHARGE INSTRUCTIONS: 1. Follow up with Dr. Poe in 1-4 weeks. 2. Take the gabapentin as instructed. 3. If she has any stroke symptoms, return to the ER. /[id number]/MODL MTDD
--- NOTE | 2017-02-28 14:49 | GDS ---
[f rep st] DISCHARGE SUMMARY DISCHARGE DIAGNOSES: 1. Atypical migraine. 2. Hypertension. 3. Depression. 4. Hypothyroidism. 5. Osteoporosis. 6. Anxiety. CONSULTATIONS: Dr. Severiano Cloud. HISTORY OF PRESENT ILLNESS: Briefly, the patient is an 86-year-old female with a history of anxiety, hypertension, who presented to the emergency room with numbness and tingling of her arm and face that began the day before. She woke up in the morning with her left arm feeling asleep. She thought she slept on it wrong and it went away on its own. Then, she developed numbness to the left side of her lips as well as her cheek. This lasted most of the day. She then noted that her arm felt numb again. [place] [facility] [place] of symptoms and was admitted for further evaluation to rule out a stroke. She had a head CTA and neck CTA which was without occlusion. Her right GLUING MACHINE ADJUSTER had stenosis. Brain MRI showed no acute changes, but some moderate chronic microvascular disease. Her echocardiogram showed no cardioembolic source. Head CT showed some mild atrophy. She was seen and evaluated by Dr. Cloud who noted that she likely had an atypical migraine causing left lip, cheek and left arm paresthesia. She has had this before. She will further follow up with Dr. Poe in the outpatient setting. HOSPITAL COURSE: 1. Atypical migraine. Her symptoms have completely resolved. She is with her daughter. Her daughter feels that she is back to her baseline. 2. Hypertension, blood pressure is 144/69. 3. Depression, stable. 4. Hypothyroidism. Resume Synthroid. 5. Osteoporosis. Resumed home medications. 6. Anxiety, none further. CONDITION AT DISCHARGE: Stable. Blood pressure is 144/69, heart rate 71, respiratory rate is 14, O2 saturation on room air 92% temperature 36.7 Celsius. MEDICATIONS AT DISCHARGE: Please see the EMR. DISCHARGE INSTRUCTIONS: 1. Follow up with Dr. Poe in 1-4 weeks. 2. Take the gabapentin as instructed. 3. If she has any stroke symptoms, return to the ER. /[id number]/MODL MTDD
--- NOTE | 2017-02-28 14:49 | GDS ---
[f rep st] DISCHARGE SUMMARY DISCHARGE DIAGNOSES: 1. Atypical migraine. 2. Hypertension. 3. Depression. 4. Hypothyroidism. 5. Osteoporosis. 6. Anxiety. CONSULTATIONS: Dr. Severiano Cloud. HISTORY OF PRESENT ILLNESS: Briefly, the patient is an 86-year-old female with a history of anxiety, hypertension, who presented to the emergency room with numbness and tingling of her arm and face that began the day before. She woke up in the morning with her left arm feeling asleep. She thought she slept on it wrong and it went away on its own. Then, she developed numbness to the left side of her lips as well as her cheek. This lasted most of the day. She then noted that her arm felt numb again. [place] [facility] persistence of symptoms and was admitted for further evaluation to rule out a stroke. She had a head CTA and neck CTA which was without occlusion. Her right ASSEMBLER TESTER had stenosis. Brain MRI showed no acute changes, but some moderate chronic microvascular disease. Her echocardiogram showed no cardioembolic source. Head CT showed some mild atrophy. She was seen and evaluated by Dr. Cloud who noted that she likely had an atypical migraine causing left lip, cheek and left arm paresthesia. She has had this before. She will further follow up with Dr. Poe in the outpatient setting. HOSPITAL COURSE: 1. Atypical migraine. Her symptoms have completely resolved. She is with her daughter. Her daughter feels that she is back to her baseline. 2. Hypertension, blood pressure is 144/69. 3. Depression, stable. 4. Hypothyroidism. Resume Synthroid. 5. Osteoporosis. Resumed home medications. 6. Anxiety, none further. CONDITION AT DISCHARGE: Stable. Blood pressure is 144/69, heart rate 71, respiratory rate is 14, O2 saturation on room air 92% temperature 36.7 Celsius. MEDICATIONS AT DISCHARGE: Please see the EMR. DISCHARGE INSTRUCTIONS: 1. Follow up with Dr. Poe in 1-4 weeks. 2. Take the gabapentin as instructed. 3. If she has any stroke symptoms, return to the ER. /[id number]/MODL MTDD
--- NOTE | 2017-03-01 12:15 | ASDISCHSUM ---
Discharge Information Plan Status:Home with Home Health Medically Cleared to Leave: Discharge Date:02/28/2017 02:23 PM CM D/C Disposition:Home Health Service ADT D/C Disposition:Home, Routine, Self-Care Projected Discharge Date:02/28/2017 02:23 PM Transportation at D/C:Family Discharge Delay Reason: Follow-Up Date:02/28/2017 02:23 PM Discharge Slot: Final Diagnosis: Placement Information Patient Contact Information Contact Name:ILYA Relationship:Daughter Address:[address] Work Phone: City:[place] Alternate Phone: State/Zip Code:[place] [address] Email: Financial Information Financial Class: Primary Plan Desc:MEDICARE OUTPATIENT Primary Plan Number:[id number] Secondary Plan Desc:HUMANA Secondary Plan Number:[id number] Assessment Information [facility] CM Progress Note CM Note CM Note Notes: Per PT Veronica, patient is appropriate for home care. I spoke with patient and her daughter, and patient agrees to be "homebound" for PT home safety eval. Address/phone confirmed. [facility] accepts patient for home care, orders sent. Patient's daughter will transport her home. Date Signed: 02/28/2017 02:17 PM Electronically Signed By:Courtney Monreal RN Intervention Information Intervention Type:*CHRIS-Signed Date of Service:02/28/2017 11:41 AM Patient Type:Observation Staff Member:Adenike Green Hours: Discipline: Severity: Comment:
--- NOTE | 2017-03-01 12:15 | ASDISCHSUM ---
Discharge Information Plan Status:Home with Home Health Medically Cleared to Leave: Discharge Date:02/28/2017 02:23 PM CM D/C Disposition:Home Health Service ADT D/C Disposition:Home, Routine, Self-Care Projected Discharge Date:02/28/2017 02:23 PM Transportation at D/C:Family Discharge Delay Reason: Follow-Up Date:02/28/2017 02:23 PM Discharge Slot: Final Diagnosis: Placement Information Patient Contact Information Contact Name:ILYA Relationship:Daughter Address:[address] Work Phone: City:[place] Alternate Phone: State/Zip Code:[place] [address] Email: Financial Information Financial Class: Primary Plan Desc:MEDICARE OUTPATIENT Primary Plan Number:[id number] Secondary Plan Desc:HUMANA Secondary Plan Number:[id number] Assessment Information [facility] CM Progress Note CM Note CM Note Notes: Per PT Veronica, patient is appropriate for home care. I spoke with patient and her daughter, and patient agrees to be "homebound" for PT home safety eval. Address/phone confirmed. [facility] accepts patient for home care, orders sent. Patient's daughter will transport her home. Date Signed: 02/28/2017 02:17 PM Electronically Signed By:Courtney Monreal RN Intervention Information Intervention Type:*CHRIS-Signed Date of Service:02/28/2017 11:41 AM Patient Type:Observation Staff Member:Adenike Green Hours: Discipline: Severity: Comment:
--- NOTE | 2017-03-01 12:15 | ASDISCHSUM ---
Discharge Information Plan Status:Home with Home Health Medically Cleared to Leave: Discharge Date:02/28/2017 02:23 PM CM D/C Disposition:Home Health Service ADT D/C Disposition:Home, Routine, Self-Care Projected Discharge Date:02/28/2017 02:23 PM Transportation at D/C:Family Discharge Delay Reason: Follow-Up Date:02/28/2017 02:23 PM Discharge Slot: Final Diagnosis: Placement Information Patient Contact Information Contact Name:ILYA Relationship:Daughter Address:[address] Work Phone: City:[place] Alternate Phone: State/Zip Code:[place] [address] Email: Financial Information Financial Class: Primary Plan Desc:MEDICARE OUTPATIENT Primary Plan Number:[id number] Secondary Plan Desc:HUMANA Secondary Plan Number:[id number] Assessment Information [facility] CM Progress Note CM Note CM Note Notes: Per PT Veronica, patient is appropriate for home care. I spoke with patient and her daughter, and patient agrees to be "homebound" for PT home safety eval. Address/phone confirmed. [facility] accepts patient for home care, orders sent. Patient's daughter will transport her home. Date Signed: 02/28/2017 02:17 PM Electronically Signed By:Courtney Monreal RN Intervention Information Intervention Type:*CHRIS-Signed Date of Service:02/28/2017 11:41 AM Patient Type:Observation Staff Member:Adenike Green Hours: Discipline: Severity: Comment:
== END 2017-02-28 14:23 | disposition home or self-care (01) ==
LOC: CED 09:00 → CEDHOLD 10:01 → F3N 11:32
PROVIDERS: ADMIT Internal Medicine; ATTEND Internal Medicine
DX: G43.809 Other migraine, not intractable, without status migrainosus (principal); I10 Essential (primary) hypertension; F32.9 Major depressive disorder, single episode, unspecified; E03.9 Hypothyroidism, unspecified; M81.0 Age-related osteoporosis without current pathological fracture; F41.9 Anxiety disorder, unspecified; Z87.891 Personal history of nicotine dependence
CPT/HCPCS: 70450; 70496; 70498; 70553; 93005; 93306; 97116; 97162; 97166; A9585; G0378; G8978; G8979; G8987; G8988; G8989; Q9967; 80053-PO; 85025-PO; 85730-PO

== ENCOUNTER → 2017-03-09 | Outpatient (CLI) | payer OTHER | LOC: GIMAGING 15:26 | PROVIDERS: ATTEND Family Medicine | DX: M20.12 Hallux valgus (acquired), left foot (principal); Q74.8 Other specified congenital malformations of limb(s) | CPT/HCPCS: 73630-PO ==

== ENCOUNTER → 2017-09-05 | Outpatient (CLI) | payer OTHER | LOC: CIMAGING 12:14 | PROVIDERS: ATTEND Family Medicine | DX: Z12.31 Encounter for screening mammogram for malignant neoplasm of breast (principal); Z85.3 Personal history of malignant neoplasm of breast ==

== ENCOUNTER → 2017-09-22 | Outpatient (CLI) | payer OTHER | LOC: CIMAGING 12:32 | PROVIDERS: ATTEND Family Medicine | DX: R92.8 Other abnormal and inconclusive findings on diagnostic imaging of breast (principal); Z85.3 Personal history of malignant neoplasm of breast ==

== ENCOUNTER → 2018-09-18 | Outpatient (CLI) | payer OTHER | LOC: CIMAGING 09:37 | PROVIDERS: ATTEND Family Medicine | DX: Z12.31 Encounter for screening mammogram for malignant neoplasm of breast (principal); Z85.3 Personal history of malignant neoplasm of breast ==